=== PATIENT | female | born 1995 ===

== ENCOUNTER 2024-04-21 05:15 | Inpatient (IN) | payer BC ==
[2024-04-21] MEDS ORDERED: Sodium Chloride 0.9% 20 ML SDV IV PRN (05:51)
[2024-04-21] MEDS ORDERED: Sodium Chloride 0.9% 2.5 ML Syringe FLUSH PRN (05:51)
[2024-04-21] MEDS ORDERED: Sodium Chloride 0.9% 10 ML Syringe FLUSH PRN (05:51)
[2024-04-21] MEDS ORDERED: ceFAZolin 2 GM in Sodium Chloride 0.9% 50 ML IV ONE (05:51)
[2024-04-21] MEDS: Lactated Ringers 1,000 ML IV SCH ×2 (06:00→14:00)
[2024-04-21] MEDS ORDERED: Oxytocin/0.9 % Sodium Chloride 30 UNIT/500 ML BAG IV SCH ×2 (06:00→11:00)
[2024-04-21 06:03] LABS: HEMATOCRIT 26.4 % (37.0-47.0); HEMOGLOBIN 8.3 g/dL (12.0-16.0); MEAN CORPUSCULAR HEMOGLOBIN 21.8 pg (28.0-32.0); MEAN CORPUSCULAR HGB CONC 31.4 g/dL (32.0-36.0); MEAN CORPUSCULAR VOLUME 69.5 fL (83.0-99.0); MEAN PLATELET VOLUME 11.1 fL (9.4-12.3); NRBC ABSOLUTE 0.06 K/uL (0.00-0.02); NRBC PERCENT 0.7 /100WBC (0.0-0.2); PLATELET COUNT,PLT 214 K/uL (150-400); WHITE BLOOD CELL COUNT,WBC 9.18 K/uL (3.9-11.3)
[2024-04-21] MEDS ORDERED: Phenylephrine 1% 10 MG/ML SDV ONE (06:57)
[2024-04-21] MEDS ORDERED: Ropivacaine 0.5% 5 MG/ML 30 ML SDV ONE (06:57)
[2024-04-21] MEDS ORDERED: ePHEDrine 50 MG/ML SDV ONE (06:57)
[2024-04-21] MEDS ORDERED: dexmedeTOMIDine HCl 200 MCG/2 ML SDV ONE (06:57)
[2024-04-21] MEDS ORDERED: Ondansetron 4 MG/2 ML SDV ONE (06:57)
[2024-04-21] MEDS ORDERED: Oxytocin 10 Units/1 ML SDV ONE (06:57)
[2024-04-21] MEDS ORDERED: droPERidol 5 MG/2 ML SDV ONE (06:57)
[2024-04-21] MEDS ORDERED: Tranexamic Acid 1,000 MG/10 ML Vial ONE (06:57)
[2024-04-21] MEDS ORDERED: Dexamethasone 4 MG/ML 5 ML MDV ONE (06:57)
[2024-04-21] MEDS ORDERED: Water For Injection, Sterile 20 ML ONE (06:58)
[2024-04-21] MEDS ORDERED: fentaNYL 100 MCG/2 ML SDV ONE (06:58)
[2024-04-21] MEDS ORDERED: Morphine PF 10 MG/10 ML SDV ONE (06:58)
[2024-04-21] MEDS ORDERED: ceFAZolin 2 GM Vial ONE (07:13)
[2024-04-21] MEDS ORDERED: Metoclopramide 10 MG/2 ML SDV IVPUSH PRN (07:29)
[2024-04-21] MEDS ORDERED: HYDROmorphone 1 MG/ML Syringe IVPUSH PRN (07:29)
[2024-04-21] MEDS ORDERED: Morphine 2 MG/ML SYRINGE IVPUSH PRN (07:29)
[2024-04-21] MEDS ORDERED: fentaNYL 50 MCG/ML SDV IVPUSH PRN (07:29)
[2024-04-21] MEDS ORDERED: droPERidol 5 MG/2 ML SDV IVPUSH PRN (07:29)
[2024-04-21] MEDS ORDERED: diphenhydrAMINE 50 MG/ML SDV IVPUSH PRN ×2 (07:29→10:56)
[2024-04-21] MEDS ORDERED: Albuterol 0.083% 2.5 MG/3 ML Neb Soln NEB PRN (07:29)
[2024-04-21] MEDS ORDERED: Naloxone 0.4 MG/ML SDV IVPUSH PRN (07:29)
[2024-04-21] MEDS ORDERED: Ondansetron 4 MG/2 ML SDV IVPUSH PRN ×2 (07:29)
[2024-04-21] MEDS ORDERED: fentaNYL 100 MCG/2 ML SDV IVPUSH PRN (07:29)
[2024-04-21] MEDS ORDERED: Calcium Chloride 10% 1 GM/10 ML Syringe ONE (07:43)
[2024-04-21] MEDS ORDERED: Ketorolac 30 MG/ML SDV ONE (08:54)
[2024-04-21] MEDS: Acetaminophen 1,000 MG in Premix Bag 1 BAG IV SCH (10:00)
[2024-04-21] MEDS: ePHEDrine 50 MG/ML SDV IVPUSH PRN (10:34)
[2024-04-21] MEDS ORDERED: Misoprostol 200 MCG Tab RECTAL PRN (10:56)
[2024-04-21] MEDS ORDERED: Methylergonovine 0.2 MG/1 ML Amp IM PRN (10:56)
[2024-04-21] MEDS ORDERED: Bisacodyl 10 MG Supp RECTAL PRN (10:56)
[2024-04-21] MEDS ORDERED: Oxytocin 10 Units/1 ML SDV IM PRN (10:56)
[2024-04-21] MEDS ORDERED: Acetaminophen/oxyCODONE 325-5 MG Tab PO PRN (10:56)
[2024-04-21] MEDS: Ketorolac 30 MG/ML SDV IVPUSH SCH (15:30)
[2024-04-21] MEDS: Ondansetron 4 MG/2 ML SDV IVPUSH PRN (15:51)
[2024-04-21] MEDS: Docusate Sodium 100 MG Cap PO SCH (20:58)
[2024-04-21] MEDS: Lanolin 100% Cream 7 GM Tube TOP PRN (20:59)
[2024-04-22 05:58] LABS: HEMATOCRIT 26.4 % (37.0-47.0); HEMOGLOBIN 8.1 g/dL (12.0-16.0)
[2024-04-22] MEDS: Acetaminophen/oxyCODONE 325-5 MG Tab PO PRN ×2 (12:52→20:09)
[2024-04-22] MEDS: Nicotine 14 MG/24 Hr Patch TRDERM SCH (18:11)
[2024-04-22] MEDS: Sodium Ferric Gluconate Cmplex 125 MG in Sodium Chloride 0.9% 100 ML IV SCH (18:17)
[2024-04-22] MEDS: Ibuprofen 800 MG Tab PO PRN (18:17)
[2024-04-22] MEDS: Sennosides/Docusate Sodium 50-8.6 MG Tab PO SCH (20:10)
== END 2024-04-23 17:00 | disposition home or self-care (01) | DRG 540 ==
LOC: MW.OB 05:15
PROVIDERS: ADMIT Obstetrics & Gynecology Obstetrics; ATTEND Obstetrics & Gynecology Obstetrics
PROC: 10D00Z1 Extraction of Products of Conception, Low, Open Approach (ICD-10-PCS; principal; 2024-04-21 08:00)
DX: O34.211 Maternal care for low transverse scar from previous cesarean delivery (principal); O99.02 Anemia complicating childbirth; Z3A.38 38 weeks gestation of pregnancy; Z37.0 Single live birth; O24.420 Gestational diabetes mellitus in childbirth, diet controlled; D50.0 Iron deficiency anemia secondary to blood loss (chronic)
CPT/HCPCS: 01961; 36415; 59025; 64488; 85014; 85018; 85027; 86592; 86850; 86900; 86901; A9270-GY; J0131; J0690; J1100; J1790; J1885; J2274; J2371; J2405; J2590; J2795; J2916; J3010; J3490; J7120